=== PATIENT | male | born 1990 | race Two or more races ===

== ENCOUNTER 2020-10-20 17:03 | Emergency (ER) | payer OTHER ==
[~2020-10-20] VITALS: Ht 175.3 cm; Wt 80.3 kg
[2020-10-20] MEDS ORDERED: OMEPRAZOLE-BIC1 EACH PO (17:12)
[2020-10-20] MEDS ORDERED: DICY20TA PO (17:12)
[2020-10-20] MEDS ORDERED: CARAFATE1 GM PO (17:13)
[2020-10-20] MEDS ORDERED: FAMOTIDINE40 MG PO (17:13)
== END 2020-10-20 20:03 | disposition home or self-care (01) ==
LOC: ER 17:03
DX: R10.13 Epigastric pain (principal); K21.9 Gastro-esophageal reflux disease without esophagitis